=== PATIENT | male | born 1935 | race Caucasian/White ===

== ENCOUNTER 2017-03-28 10:33 | Inpatient (IN) | payer MEDICARE, OTHER ==
[~2017-03-28] VITALS: Ht 170.2 cm; Wt 65.0 kg
[2017-03-28 10:39] VITALS: BP 130/72; PULSE 80; RESP 16; TEMP 97.4; O2SAT 92
--- NOTE | 2017-03-28 11:03 | PD ---
HPI Chief Complaint: Respiratory Symptoms Time Seen by Provider: 10:50 Travel History International Travel<30 days: No Contact w/Intl Traveler<30days: No Traveled to known affect area: No History of Present Illness HPI This 81-year-old male is complaining of having no appetite and feeling weak. He is 81 years old. He has a history of heart disease. He's had multiple stents. He has had surgery for an abdominal aortic aneurysm. He has a history of prostate cancer and history of hypothyroidism. He lives near [place]. He was admitted to a hospital there around December with symptoms of shortness of breath. He was found to have a small amount of fluid and one of his lungs but was released. He came down here and has not been feeling well since he got here. He gets short of breath with minimal exertion. He is complaining of generalized weakness. He stopped smoking at the age of 48. He has history of back troubles he had herniated disc. He has had stents put in his heart PFSH Past Medical History Hx Anticoagulant Therapy: Yes Cardiovascular Problems: Yes (A-FIB) Social History Tobacco Use: No Allergies-Medications (Allergen,Severity, Reaction): Coded Allergies: No Known Allergies (Verified Allergy, Unknown, 03/28/17) Reported Meds & Prescriptions Reported Meds & Active Scripts Active Reported Coumadin (Warfarin) 5 Mg Tab 5 Mg PO DAILY Aspirin 81 Mg Chew 81 Mg CHEW DAILY Ferrous Sulfate 325 Mg (65 Mg Iron) Tablet 325 Mg PO DAILY Atorvastatin (Atorvastatin Calcium) 40 Mg Tab 40 Mg PO HS Citalopram (Citalopram Hydrobromide) 40 Mg Tab 40 Mg PO DAILY Metoprolol Tartrate 50 Mg Tab 50 Mg PO DAILY Levothyroxine (Levothyroxine Sodium) 100 Mcg Tab 100 Mcg PO DAILY Losartan (Losartan Potassium) 25 Mg Tab 25 Mg PO DAILY Review of Systems General / Constitutional: Positive: Weight Loss, No: Fever, Chills Eyes: No: Diploplia, Blurred Vision HENT: No: Headaches, Lightheadedness Cardiovascular: No: Chest Pain or Discomfort, Palpitations Respiratory: Positive: Shortness of Breath Gastrointestinal: Positive: Loss of Appetite Genitourinary: No: Urgency, Frequency Skin: No Rash Neurologic: Positive: Weakness Hematologic/Lymphatic: Positive: Easy Bruising Physical Exam Narrative GENERAL: Well-developed male SKIN: Focused skin assessment warm/dry. HEAD: Atraumatic. Normocephalic. EYES: Pupils equal and round. No scleral icterus. No injection or drainage. ENT: No nasal bleeding or discharge. Mucous membranes pink and moist. NECK: Trachea midline. No JVD. CARDIOVASCULAR: Irregular rate and rhythm. No murmur appreciated. RESPIRATORY: No accessory muscle use. Clear to auscultation. Breath sounds are absent on the right GASTROINTESTINAL: Abdomen soft, non-tender, nondistended. Hepatic and splenic margins not palpable. MUSCULOSKELETAL: No obvious deformities. No clubbing. No cyanosis. No edema. NEUROLOGICAL: Awake and alert. No obvious cranial nerve deficits. Motor grossly within normal limits. Normal speech. PSYCHIATRIC: Appropriate mood and affect; insight and judgment normal. Data Data Last Documented VS Vital Signs Date Time Temp Pulse Resp B/P (MAP) Pulse Ox O2 Delivery O2 Flow Rate FiO2 03/28/17 13:02 90 20 134/73 (93) 98 Room Air 03/28/17 10:39 97.4 Orders Orders Electrocardiogram (03/28/17 11:00) Complete Blood Count With Diff (03/28/17 11:00) Comprehensive Metabolic Panel (03/28/17 11:00) Prothrombin Time / Inr (Pt) (03/28/17 11:00) Act Partial Throm Time (Ptt) (03/28/17 11:00) Chest, Pa & Lat (03/28/17 11:00) Troponin I (03/28/17 11:03) B-Type Natriuretic Peptide (03/28/17 11:03) Ct Thorax/ Chest W Iv Contrast (03/28/17 11:40) Iohexol 350 Inj (Omnipaque 350 Inj) (03/28/17 13:15) Admit Order (Ed Use Only) (03/28/17 13:55) Labs Laboratory Tests Test 03/28/17 11:50 White Blood Count 5.6 TH/MM3 Red Blood Count 3.51 MIL/MM3 Hemoglobin 11.2 GM/DL Hematocrit 35.4 % Mean Corpuscular Volume 100.8 FL Mean Corpuscular Hemoglobin 31.8 PG Mean Corpuscular Hemoglobin Concent 31.5 % Red Cell Distribution Width 17.0 % Platelet Count 268 TH/MM3 Mean Platelet Volume 6.6 FL Neutrophils (%) (Auto) 64.7 % Lymphocytes (%) (Auto) 19.3 % Monocytes (%) (Auto) 11.8 % Eosinophils (%) (Auto) 3.9 % Basophils (%) (Auto) 0.3 % Neutrophils # (Auto) 3.6 TH/MM3 Lymphocytes # (Auto) 1.1 TH/MM3 Monocytes # (Auto) 0.7 TH/MM3 Eosinophils # (Auto) 0.2 TH/MM3 Basophils # (Auto) 0.0 TH/MM3 CBC Comment DIFF FINAL Differential Comment Prothrombin Time 15.3 SEC Prothromb Time International Ratio 1.5 RATIO Activated Partial Thromboplast Time 31.7 SEC Blood Urea Nitrogen 14 MG/DL Creatinine 0.76 MG/DL Random Glucose 82 MG/DL Total Protein 7.1 GM/DL Albumin 2.8 GM/DL Calcium Level 8.2 MG/DL Alkaline Phosphatase 90 U/L Aspartate Amino Transf (AST/SGOT) 18 U/L Alanine Aminotransferase (ALT/SGPT) 12 U/L Total Bilirubin 1.1 MG/DL Sodium Level 137 MEQ/L Potassium Level 4.4 MEQ/L Chloride Level 107 MEQ/L Carbon Dioxide Level 25.2 MEQ/L Anion Gap 5 MEQ/L Estimat Glomerular Filtration Rate 98 ML/MIN Troponin I LESS THAN 0.02 NG/ML B-Type Natriuretic Peptide 581 PG/ML MDM Medical Decision Making Medical Screen Exam Complete: Yes Emergency Medical Condition: Yes Medical Record Reviewed: Yes Differential Diagnosis Differential includes pneumonia, pleural effusion, Narrative Course Chest x-ray shows a large right pleural effusion. The scan has been done and confirms this effusion there may also be a localized pericardial collection Diagnosis Primary Impression: Pleural effusion, right Sammy Coleman MD Mar 28, 2017 11:03
[2017-03-28] MEDS ORDERED: METO50TA PO (11:20)
[2017-03-28] MEDS ORDERED: LEVO100T5 PO (11:20)
[2017-03-28] MEDS ORDERED: COUM5TAB PO (11:20)
[2017-03-28] MEDS ORDERED: LOSA25TA PO (11:20)
[2017-03-28] MEDS ORDERED: ATOR40TA16 PO (11:20)
[2017-03-28] MEDS ORDERED: CITA40TA4 PO (11:20)
[2017-03-28] MEDS ORDERED: ASPI-516 CHEW (11:20)
[2017-03-28] MEDS ORDERED: FERR325T18 PO (11:20)
--- NOTE | 2017-03-28 11:32 | RADRPT ---
EXAM DATE/TIME: 03/28/2017 11:10 [facility] COMPARISON: No previous studies available for comparison. EXTERNAL COMPARISON : [facility]. March 28, 2017 INDICATIONS : Short of breath for one month. Patient was at [facility] this morning and sent to [facility] urgent [facility]. MEDICAL HISTORY : Hypertension. SURGICAL HISTORY : Abdominal aortic aneurysm repair. ENCOUNTER: Initial ACUITY: 1 month PAIN SCORE: 0/10 LOCATION: Bilateral chest FINDINGS: PA and lateral views of the chest were obtained and demonstrate a moderate size right pleural effusio n with streaky opacity at the right lung base. The left lung is clear. The heart size appears mildly enlarged. Mild atherosclerotic changes are present in the aorta. The bony thorax is intact. There are multiple small metallic structures in the posterior central upper abdomen. CONCLUSION: 1. Moderate size right pleural effusion with patchy opacity at the right lung base. 2. Mild cardiomegaly. 3. Multiple small metallic structures in the posterior central upper abdomen which may be related to the patient's prior abdominal aneurysm surgery. Sloan Franklin MD on March 28, 2017 at 11:27 Board Certified Radiologist. This report was verified electronically.
[2017-03-28 12:12] LABS: AUTOMATED NEUTROPHIL # 3.6 TH/MM3 (1.8-7.7); BASOPHIL % 0.3 % (0.0-2.0); EOSINOPHIL # 0.2 TH/MM3 (0-0.4); EOSINOPHIL % 3.9 % (0.0-4.0); HEMATOCRIT 35.4 % (39.0-51.0); HEMOGLOBIN 11.2 GM/DL (13.0-17.0); LYMPH % 19.3 % (9.0-44.0); LYMPHOCYTE # 1.1 TH/MM3 (1.0-4.8); MEAN CELL VOLUME 100.8 FL (80.0-100.0); MEAN CORPUSCULAR HEMOGLOBIN 31.8 PG (27.0-34.0); MEAN CORPUSCULAR HGB CONC 31.5 % (32.0-36.0); MEAN PLATELET VOLUME 6.6 FL (7.0-11.0); MONO % 11.8 % (0.0-8.0); MONOCYTE # 0.7 TH/MM3 (0-0.9); NEUT % 64.7 % (16.0-70.0); PLATELET COUNT 268 TH/MM3 (150-450); RED BLOOD COUNT 3.51 MIL/MM3 (4.50-5.90); WHITE BLOOD COUNT 5.6 TH/MM3 (4.0-11.0)
[2017-03-28 12:22] LABS: CHLORIDE 107 MEQ/L (98-107); SODIUM (NA) 137 MEQ/L (136-145)
[2017-03-28 12:25] LABS: ALBUMIN 2.8 GM/DL (3.4-5.0); BICARBONATE 25.2 MEQ/L (21.0-32.0); BLOOD UREA NITROGEN 14 MG/DL (7-18); CALCIUM 8.2 MG/DL (8.5-10.1); GLUCOSE,RANDOM 82 MG/DL (74-106); INTERNATIONAL NORMALIZED RATIO 1.5 RATIO; PROTHROMBIN TIME - PATIENT 15.3 SEC (9.8-11.6)
[2017-03-28 12:28] LABS: ALT (GPT) 12 U/L (12-78); AST (GOT) 18 U/L (15-37)
[2017-03-28 12:29] LABS: CREATININE 0.76 MG/DL (0.60-1.30); GLOMERULAR FILTRATION RATE 98 ML/MIN (>89)
[2017-03-28 12:30] LABS: TOTAL BILIRUBIN ADULT 1.1 MG/DL (0.2-1.0); TOTAL PROTEIN 7.1 GM/DL (6.4-8.2)
[2017-03-28 12:31] LABS: ALKALINE PHOSPHATASE 90 U/L (45-117)
[2017-03-28 13:02] VITALS: BP 134/73; PULSE 90; RESP 20; O2SAT 98
[2017-03-28] MEDS ORDERED: IOHEXOL 350 MG/ML 10 ML VIAL (for RAD DIAG) IVCONTRAST ONE (13:15)
--- NOTE | 2017-03-28 13:31 | RADRPT ---
EXAM DATE/TIME: 03/28/2017 13:06 [facility] COMPARISON: CHEST PA & LAT, March 28, 2017, 11:10. INDICATIONS : General weakness and loss of appetite. x 5 weeks. Short of breath with exertion. Abnormal chest x-r ay. IV CONTRAST: 60 cc Omnipaque 350 (iohexol) IV RADIATION DOSE: 9.25 CTDIvol (mGy) MEDICAL HISTORY : Cardiovascular disease. Aneurysm, abdominal. Carcinoma, prostate.Hypertension. SURGICAL HISTORY : Abdominal aortic aneurysm repair. Coronary artery stent. ENCOUNTER: Initial ACUITY: 1 month PAIN SCALE: 0/10 LOCATION: Bilateral chest TECHNIQUE: Volumetric scanning of the chest was performed. Using automated exposure control and adjustment of t he mA and/or kV according to patient size, radiation dose was kept as low as reasonably achievable to obtain optimal diagnostic quality images. DICOM format image data is available electronically for review and comparison. Follow-up recommendations for detected pulmonary nodules are based at a minimum on nodule size and pa tient risk factors according to Fleischner Society Guidelines. FINDINGS: LUNGS: There is no pneumothorax. No concerning pulmonary nodule is visualized. There is atelectasis and mil d consolidation in the right lung base portion which may be compressive. Left lung is clear. There is no distinct focal mass. PLEURA: There is a moderate to large right pleural effusion which extends to the lung apex. MEDIASTINUM: The heart and great vessels demonstrate no acute abnormality. There is no mediastinal or hilar lymph adenopathy. There is mild cardiomegaly. There is a low density fluid collection along the anterior he art border which may represent pericardial fluid. This collection measures up to approximately 3.8 x 3 cm. AXILLAE: Within normal limits. No lymphadenopathy. SKELETAL: Within normal limits for patient age. MISCELLANEOUS: The visualized upper abdominal organs demonstrate no acute abnormality. CONCLUSION: 1. Moderate to large right effusion with mild consolidation and atelectasis at the right lung base wh ich may be partially compressible. 2. Local rounded fluid collection located into the heart which could represent a localized pericardia l collection. Sloan Franklin MD on March 28, 2017 at 13:26 Board Certified Radiologist. This report was verified electronically.
[2017-03-28] MEDS ORDERED: SODIUM CHLORIDE 0.9% FLUSH 10 ML FLUSH IV FLUSH PRN (14:30)
--- NOTE | 2017-03-28 15:21 | HHI.HP ---
[facility]Staff Ad[facility] Diagnosis RIGHT PLEURAL EFFUSION Diagnoses: Chief Complaint: Shortness of breath Travel History International Travel<30 Days: No Contact w/Intl Traveler <30 Da: No Traveled to Known Affected Are: No History of Present Illness This patient is an 81-year-old gentleman with a history of atrial fibrillation and HCM who comes to the emergency room complaining of increased fatigue and poor oral intake over the last several days. He has admitted he's lost about 10 pounds unintentionally due to not eating and sleeping a lot. Apparently in December he had some sort of pneumonia which was treated in the hospital. Subsequently he had evaluation for increased shortness of breath and was found have a small pleural effusion. Since that time he's been discharged. He did have a complete cardiac evaluation per his report which included a heart catheterization and echocardiogram which she reports as "normal". He follows up with his medical team up in [place] but is visiting down in [place] for the winter. He has not had any new medications. He reports increased dyspnea and work of breathing and shortness of breath. In the emergency room was evaluated and found to have a moderate to large right sided pleural effusion. He says he may have had one before in the hospital [place] but it was very small and the doctors didn't mention it but said to just keep an eye out. At this time he presents without fever or chills. He has not had any constipation or diarrhea. There is no chest pain or pleuritic pain. He is however very short of breath with walking sort distances and has become mildly hypoxemic in the emergency room. For these reasons the patient is admitted to the hospital Review of Systems Constitutional: COMPLAINS OF: Fatigue, Weight loss (at least 10 pounds unintentionally over the last several weeks), Change in appetite, DENIES: Diaphoretic episodes, Fever, Weight gain, Chills, Dizziness, Night Sweats Endocrine: DENIES: Heat/cold intolerance, Polydipsia, Polyuria, Polyphagia Eyes: DENIES: Blurred vision, Diplopia, Eye inflammation, Eye pain, Vision loss , Photosensitivity, Double Vision Ears, nose, mouth, throat: DENIES: Tinnitus, Hearing loss, Vertigo, Nasal discharge, Oral lesions, Throat pain, Hoarseness, Ear Pain, Running Nose, Epistaxis, Sinus Pain, Toothache, Odynophagia Respiratory: DENIES: Apneas, Cough, Snoring, Wheezing, Hemoptysis, Sputum production, Shortness of breath Cardiovascular: COMPLAINS OF: Dyspnea on Exertion, DENIES: Chest pain, Palpitations, Syncope, PND, Lower Extremity Edema, Orthopnea, Claudication Gastrointestinal: DENIES: Abdominal pain, Black stools, Bloody stools, Constipation, Diarrhea, Nausea, Vomiting, Difficulty Swallowing, Anorexia Musculoskeletal: DENIES: Joint pain, Muscle aches, Stiffness, Joint Swelling, Back pain, Neck pain Integumentary: DENIES: Abnormal pigmentation, Nail changes, Pruritus, Rash Hematologic/lymphatic: DENIES: Bruising, Lymphadenopathy Immunologic/allergic: DENIES: Eczema, Urticaria Neurologic: DENIES: Abnormal gait, Headache, Localized weakness, Paresthesias, Seizures, Speech Problems, Tremor, Poor Balance Psychiatric: COMPLAINS OF: Anxiety (stable on SSRI), DENIES: Confusion, Mood changes, Depression, Hallucinations, Agitation, Suicidal Ideation, Homicidal Ideation, Delusions Except as stated in HPI: all other systems reviewed are Neg Past Family Social History Past Medical History Relation Hypertrophic cardiomyopathy Triple a status post surgical repair Depression Chronic Coumadin therapy for A. fib Hyperlipidemia Hypertension Prostate cancer status post seeding Past Surgical History AAA repair, appendectomy, ankle surgery Right second digit partial amputation Reported Medications Reviewed in the EMR Allergies: Coded Allergies: No Known Allergies (Verified Allergy, Unknown, 03/28/17) Active Ordered Medications Reviewed in the EMR Family History Mother at 97 but had abdominal aortic aneurysm, father from brain cancer Social History Quit smoking over 30 years ago, no tobacco, visiting from [place] Physical Exam Vital Signs Vital Signs Date Time Temp Pulse Resp B/P (MAP) Pulse Ox O2 Delivery O2 Flow Rate FiO2 03/28/17 13:02 90 20 134/73 (93) 98 Room Air 03/28/17 12:00 20 03/28/17 10:39 97.4 80 16 130/72 (91) 92 Physical Exam GENERAL: This is a well-nourished, well-developed patient, in no apparent distress. SKIN: No rashes, ecchymoses or lesions. Cool and dry. HEAD: Atraumatic. Normocephalic. No temporal or scalp tenderness. EYES: Pupils equal round and reactive. Extraocular motions intact. No scleral icterus. No injection or drainage. ENT: Nose without bleeding, purulent drainage or septal hematoma. Throat without erythema, tonsillar hypertrophy or exudate. Uvula midline. Airway patent. NECK: Trachea midline. No JVD or lymphadenopathy. Supple, nontender, no meningeal signs. CARDIOVASCULAR: Rate controlled atrial fibrillation without murmurs, gallops, or rubs. RESPIRATORY: Decreased breath sounds right lower lung alexander, no wheezes GASTROINTESTINAL: Abdomen soft, non-tender, nondistended. No hepato-splenomegaly , or palpable masses. No guarding. MUSCULOSKELETAL: Right second digit partially amputated, Extremities without clubbing, cyanosis, or edema. No joint tenderness, effusion, or edema noted. No calf tenderness. Negative Homans sign bilaterally. NEUROLOGICAL: Awake and alert. Cranial nerves II through XII intact. Motor and sensory grossly within normal limits. Five out of 5 muscle strength in all muscle groups. Normal speech. Laboratory Laboratory Tests Test 03/28/17 11:50 White Blood Count 5.6 Red Blood Count 3.51 Hemoglobin 11.2 Hematocrit 35.4 Mean Corpuscular Volume 100.8 Mean Corpuscular Hemoglobin 31.8 Mean Corpuscular Hemoglobin Concent 31.5 Red Cell Distribution Width 17.0 Platelet Count 268 Mean Platelet Volume 6.6 Neutrophils (%) (Auto) 64.7 Lymphocytes (%) (Auto) 19.3 Monocytes (%) (Auto) 11.8 Eosinophils (%) (Auto) 3.9 Basophils (%) (Auto) 0.3 Neutrophils # (Auto) 3.6 Lymphocytes # (Auto) 1.1 Monocytes # (Auto) 0.7 Eosinophils # (Auto) 0.2 Basophils # (Auto) 0.0 CBC Comment DIFF FINAL Differential Comment Prothrombin Time 15.3 Prothromb Time International Ratio 1.5 Activated Partial Thromboplast Time 31.7 Blood Urea Nitrogen 14 Creatinine 0.76 Random Glucose 82 Total Protein 7.1 Albumin 2.8 Calcium Level 8.2 Alkaline Phosphatase 90 Aspartate Amino Transf (AST/SGOT) 18 Alanine Aminotransferase (ALT/SGPT) 12 Total Bilirubin 1.1 Sodium Level 137 Potassium Level 4.4 Chloride Level 107 Carbon Dioxide Level 25.2 Anion Gap 5 Estimat Glomerular Filtration Rate 98 Troponin I LESS THAN 0.02 B-Type Natriuretic Peptide 581 Result Diagram: 03/28/17 1150 03/28/17 1150 Imaging Last Impressions Chest CT 03/28/17 1140 Signed Impressions: Service Date/Time: March 13:06 - CONCLUSION: 1. Moderate to large right effusion with mild consolidation and atelectasis at the right lung base which may be partially compressible. 2. Local rounded fluid collection located into the heart which could represent a localized pericardial collection. Sloan Franklin MD Chest X-Ray 03/28/17 1100 Signed Impressions: Service Date/Time: March 11:10 - CONCLUSION: 1. Moderate size right pleural effusion with patchy opacity at the right lung base. 2. Mild cardiomegaly. 3. Multiple small metallic structures in the posterior central upper abdomen which may be related to the patient's prior abdominal aneurysm surgery. Sloan Franklin MD Caprini VTE Risk Assessment Caprini VTE Risk Assessment: Mod/High Risk (score >= 2) Caprini Risk Assessment Model Point Value = 1 Point Value = 2 Point Value = 3 Point Value = 5 Age 41-60 Minor surgery BMI > 25 kg/m2 Swollen legs Varicose veins or History of unexplained or recurrent spontaneous Oral contraceptives or hormone replacement Sepsis (< 1 month) Serious lung disease, including pneumonia (< 1 month) Abnormal pulmonary function Acute myocardial infarction Congestive heart failure (< 1 month) History of inflammatory bowel disease Medical patient at bed rest Age 61-74 Arthroscopic surgery Major open surgery (> 45 min) Laparoscopic surgery (> 45 min) Malignancy Confined to bed (> 72 hours) Immobilizing plaster cast Central venous access Age >= 75 History of VTE Family history of VTE Factor V Leiden Prothrombin [id number] Lupus anticoagulant Anticardiolipin antibodies Elevated serum homocysteine Heparin-induced thrombocytopenia Other congenital or acquired thrombophilia Stroke (< 1 month) Elective arthroplasty Hip, pelvis, or leg fracture Acute spinal cord injury (< 1 month) Prophylaxis Regimen Total Risk Factor Score Risk Level Prophylaxis Regimen 0-1 Low Early ambulation 2 Moderate Order ONE of the following: *Sequential Compression Device (SCD) *Heparin 5000 units SQ BID 3-4 Higher Order ONE of the following medications: *Heparin 5000 units SQ TID *Enoxaparin/Lovenox 40 mg SQ daily (WT < 150 kg, CrCl > 30 mL/min) *Enoxaparin/Lovenox 30 mg SQ daily (WT < 150 kg, CrCl > 10-29 mL/min) *Enoxaparin/Lovenox 30 mg SQ BID (WT < 150 kg, CrCl > 30 mL/min) AND/OR *Sequential Compression Device (SCD) 5 or more Highest Order ONE of the following medications: *Heparin 5000 units SQ TID (Preferred with Epidurals) *Enoxaparin/Lovenox 40 mg SQ daily (WT < 150 kg, CrCl > 30 mL/min) *Enoxaparin/Lovenox 30 mg SQ daily (WT < 150 kg, CrCl > 10-29 mL/min) *Enoxaparin/Lovenox 30 mg SQ BID (WT < 150 kg, CrCl > 30 mL/min) AND *Sequential Compression Device (SCD) Assessment and Plan Problem List: (1) Pleural effusion, right ICD Code: J90 - Pleural effusion, not elsewhere classified Status: Acute Plan: Etiology unclear, patient will need therapeutic and diagnostic thoracentesis which we will arrange INR 1.5 today, continue to hold Coumadin Ultrasound for for thoracentesis Follow-up echocardiogram, obtain old records (2) Afib ICD Code: I48.91 - Unspecified atrial fibrillation Plan: Rate currently controlled, we'll continue patient's home medications, metoprolol, follow on telemetry Coumadin has been held for possible procedures (3) HTN (hypertension) ICD Code: I10 - Essential (primary) hypertension Plan: Currently on losartan and metoprolol, controlled (4) HOCM (hypertrophic obstructive cardiomyopathy) ICD Code: I42.1 - Obstructive hypertrophic cardiomyopathy Plan: Avoid over diuresis continue cardiac medicines Assessment and Plan Continue home medicines for thyroid, anxiety , cholesterol and iron Code Status Full code Discussed Condition With Patient, JOSEPH Sal Physician Certification 2 Midnight Certification Type: Admission for Inpatient Services Order for Inpatient Services The services are ordered in accordance with Medicare regulations or non- Medicare payer requirements, as applicable. In the case of services not specified as inpatient-only, they are appropriately provided as inpatient services in accordance with the 2-midnight benchmark. Estimated LOS (days): 3 3 days is the estimated time the patient will need to remain in the hospital, assuming treatment plan goals are met and no additional complications. Post-Hospital Plan: Bertha Yan MD Mar 28, 2017 15:21
[2017-03-28 15:30] VITALS: BP 135/81; PULSE 87; RESP 20; TEMP 97.9; O2SAT 92
[2017-03-28] MEDS ORDERED: FUROSEMIDE 40 MG/4 ML VIAL IV PUSH ONE (16:00)
[2017-03-28] MEDS ORDERED: RESP: ALBUTEROL 2.5 MG/IPRATROPIUM 0.5 MG NEB (PRN) NEB (16:00)
[2017-03-28] MEDS: LEVOFLOXACIN 500 MG PREMIX INJ 100 ML IV SCH (16:26)
[2017-03-28] MEDS ORDERED: FUROSEMIDE 40 MG/4 ML VIAL IV PUSH SCH (18:00)
[2017-03-28 20:00] VITALS: BP 101/82; PULSE 107; RESP 20; TEMP 98.1; O2SAT 95
[2017-03-28 21:00] VITALS: O2SAT 93
[2017-03-28] MEDS: SODIUM CHLORIDE 0.9% FLUSH 10 ML FLUSH IV FLUSH SCH (21:54)
[2017-03-29] VITALS (7 sets, daily range): BP systolic 103–142; BP diastolic 65–108; PULSE 65–98; RESP 16–22; TEMP 96.2–97.6; O2SAT 94–98
[2017-03-29 06:04] LABS: AUTOMATED NEUTROPHIL # 3.7 TH/MM3 (1.8-7.7); BASOPHIL % 0.4 % (0.0-2.0); EOSINOPHIL # 0.2 TH/MM3 (0-0.4); EOSINOPHIL % 3.9 % (0.0-4.0); HEMATOCRIT 36.6 % (39.0-51.0); HEMOGLOBIN 11.8 GM/DL (13.0-17.0); LYMPHOCYTE # 1.2 TH/MM3 (1.0-4.8); MEAN CELL VOLUME 98.1 FL (80.0-100.0); MEAN CORPUSCULAR HEMOGLOBIN 31.6 PG (27.0-34.0); MEAN CORPUSCULAR HGB CONC 32.3 % (32.0-36.0); MONO % 12.9 % (0.0-8.0); MONOCYTE # 0.8 TH/MM3 (0-0.9); NEUT % 61.8 % (16.0-70.0); PLATELET COUNT 280 TH/MM3 (150-450); RED BLOOD COUNT 3.73 MIL/MM3 (4.50-5.90); RED CELL DISTRIBUTION WIDTH 15.8 % (11.6-17.2); WHITE BLOOD COUNT 5.9 TH/MM3 (4.0-11.0)
[2017-03-29 06:18] LABS: CALCIUM 8.7 MG/DL (8.5-10.1)
[2017-03-29 06:19] LABS: BICARBONATE 27.1 MEQ/L (21.0-32.0)
[2017-03-29 06:22] LABS: CREATININE 0.95 MG/DL (0.60-1.30)
--- NOTE | 2017-03-29 06:55 | MB ---
cc: ROBERTA SEALS DATE OF CONSULTATION 03/28/2017 REASON FOR CONSULTATION Respiratory insufficiency with right pleural effusion. HISTORY OF PRESENT ILLNESS This is an 81-year old white male with a history of chronic atrial fibrillation on anticoagulation who was brought in for progressive weakness, dizziness, shortness of breath and tightness in his chest. The patient apparently has had a history for pneumonia in the past and he was orthopneic over the past few days and he has been Coumadin, but his INR was subtherapeutic. The patient is visiting from [place], [place] and is now admitted due to increased dyspnea and a right pleural effusion. The patient also admits to have had some weight loss over the past few months, but denies any GI symptoms or loose stools or constipation. PAST HISTORY Has included a history for: 1. Atrial fibrillation and ASHD 2. Cardiomyopathy 3. Prior history of abdominal aortic aneurysm repair. 4. History of hypertension and hyperlipidemia. 5. Prior history of prostate cancer with radiation therapy. 6. A history for appendectomy and ankle surgery as well as partial amputation of the right second digit. ALLERGIES None listed. MEDICATIONS The med list was reviewed from the chart. HABITS The patient smoked one-pack per day for 20 years and then quit. No significant alcohol use. REVIEW OF SYSTEMS The patient has had some weight loss. He has dizziness. He has chest tightness, wheezing, shortness of breath, orthopnea. He has urinary frequency. Denies leg or calf muscle pains. He has some joint pains in his extremities. PHYSICAL EXAMINATION This is a thinly built elderly man who is pale and mildly dyspneic. There is no clubbing and no peripheral edema. VITAL SIGNS: His blood pressure is 130/70, pulse 88, respirations 20, temperature 97.5. HEENT: Head normocephalic. Pupils are reactive and equal. Tongue is moist. Throat is clear. Nasal mucosa injected. He has no inflammation. NECK: Supple without venous distension. No bruits or thyroid enlargement. CHEST: Equal movements. Dullness to percussion over the right mid and lower chest with decreased breath sounds over the right base. Occasional wheezes bilaterally. HEART: The heart sounds irregularly irregular with no murmur. No S3. ABDOMEN: Soft and nontender. No organomegaly. Bowel sounds are active. EXTREMITIES: Decreased peripheral pulses. Reflexes 1+ with no gross motor deficits. NEUROLOGIC: Cranial nerves grossly intact. RECTAL: Exam is deferred. SKIN: No lesions are noted. IMPRESSION 1. Right pleural effusion, etiology undetermined. 2. Right basilar atelectasis and possible pneumonia 3. He has atrial fibrillation and ASHD. 4. Hypertension 5. Hypertrophic cardiomyopathy. PLAN The patient has been advised that a thoracentesis will be planned to evaluate the effusion for therapeutic purposes. The risks of the procedure including pneumothorax, bleeding, respiratory failure, etc. were discussed. We will hold the Coumadin at this time and if his pro-time is adequate, go ahead with a thoracentesis in the a.m. And ultrasound examination of the chest will be obtained as well and we will continue with diuretic therapy daily, nebulized DuoNeb solution added q.i.d. and Levaquin continued at 500 mg IV daily. Thank you Dr. Navarro for this consultation. MD TICO Rubin/SHAWNA /8:38 PM /6:29 AM
--- NOTE | 2017-03-29 09:40 | RADRPT ---
EXAM DATE/TIME: 03/29/2017 09:03 [facility] COMPARISON: No previous studies available for comparison. INDICATIONS : Pleural effusion. MEDICAL HISTORY : Hypercholesterolemia. Aneurysm, abdominal. Carcinoma, prostate. Thyroid disease. Afib. HTN. Anxiety. Pleural effusion. SURGICAL HISTORY : Coronary artery stent. Abdominal aortic aneurysm repair. Hernia repair. ENCOUNTER: Initial ACUITY: 1 day PAIN SCORE: 1/10 LOCATION: Right chest MEASUREMENTS: SKIN TO PARIETAL PLEURA: 1.7 cm SKIN TO MAX SAFE DEPTH: 6.0 cm ESTIMATED FLUID VOLUME: 1814 cc FLUID COMPOSITION: simple FINDINGS: Pleural effusion as above. A nolan was placed on the skin surface superficial to the pleural fluid col lection. CONCLUSION: Large right effusion. Trevor Tapia Jr., MD on March 29, 2017 at 9:37 Board Certified Radiologist. This report was verified electronically.
[2017-03-29] MEDS: LOSARTAN 25 MG TAB PO SCH (11:28)
[2017-03-29] MEDS: METOPROLOL TARTRATE 50 MG TAB PO SCH (11:28)
[2017-03-29] MEDS: FERROUS SULFATE 325 MG (65 MG ELEMENTAL IRON) TAB PO SCH (11:28)
[2017-03-29] MEDS: LEVOTHYROXINE SODIUM 100 MCG TAB PO SCH (11:29)
[2017-03-29] MEDS: CITALOPRAM HYDROBROMIDE 40 MG TAB PO SCH (11:30)
[2017-03-29] MEDS ORDERED: ZOLPIDEM TARTRATE 10 MG TAB PO PRN (11:45)
--- NOTE | 2017-03-29 11:48 | HHI.PR ---
Subjective Remarks Patient seen in follow up for Pleural effusion and symptoms of SOB Pulm consult appreciated No new events overnight Objective Vitals Vital Signs Date Time Temp Pulse Resp B/P (MAP) Pulse Ox O2 Delivery O2 Flow Rate FiO2 03/29/17 08:00 97.4 90 16 108/66 (80) 94 03/29/17 04:00 97.1 98 20 142/108 (119) 98 03/29/17 00:00 97.4 98 20 126/67 (86) 94 03/28/17 21:00 93 21 03/28/17 20:00 98.1 107 20 101/82 (88) 95 03/28/17 15:30 97.9 87 20 135/81 (99) 92 03/28/17 13:02 90 20 134/73 (93) 98 Room Air 03/28/17 12:00 20 I/O 03/28/17 03/28/17 03/28/17 03/29/17 03/29/17 03/29/17 07:00 15:00 23:00 07:00 15:00 23:00 Intake Total 220 ml Output Total 2 ml Balance 218 ml Intake Oral 220 ml Output Urine Total 2 ml # Bowel Movements 0 Result Diagram: 03/29/17 0527 03/29/17 0527 Imaging Last Impressions Chest Ultrasound 03/29/17 0000 Signed Impressions: Service Date/Time: Wednesday, March 29, 2017 09:03 - CONCLUSION: Large right effusion. Trevor Tapia Jr., MD Chest CT 03/28/17 1140 Signed Impressions: Service Date/Time: March 13:06 - CONCLUSION: 1. Moderate to large right effusion with mild consolidation and atelectasis at the right lung base which may be partially compressible. 2. Local rounded fluid collection located into the heart which could represent a localized pericardial collection. Sloan Franklin MD Chest X-Ray 03/28/17 1100 Signed Impressions: Service Date/Time: March 11:10 - CONCLUSION: 1. Moderate size right pleural effusion with patchy opacity at the right lung base. 2. Mild cardiomegaly. 3. Multiple small metallic structures in the posterior central upper abdomen which may be related to the patient's prior abdominal aneurysm surgery. Sloan Franklin MD Objective Remarks GENERAL: This is a well-nourished, well-developed patient, in no apparent distress. CARDIOVASCULAR: Regular rate and rhythm without murmurs, gallops, or rubs. RESPIRATORY:right side decreased at the base, left Clear to auscultation. Breath sounds equal bilaterally. No wheezes, rales, or rhonchi. GASTROINTESTINAL: Abdomen soft, non-tender, nondistended. Normal active bowel sounds MUSCULOSKELETAL: Extremities without clubbing, cyanosis, or edema. NEURO: Alert & Oriented x4 to person, place, time, situation. Moves all ext x4 A/P Problem List: (1) Pleural effusion, right ICD Code: J90 - Pleural effusion, not elsewhere classified Status: Acute Plan: Etiology unclear, patient will need therapeutic and diagnostic thoracentesis which we will arrange INR 1.5 today, continue to hold Coumadin Pulm for thoracentesis Follow-up echocardiogram, obtain old records (2) Afib ICD Code: I48.91 - Unspecified atrial fibrillation Plan: Rate currently controlled, we'll continue patient's home medications, metoprolol, follow on telemetry Coumadin has been held for thoracentesis (3) HTN (hypertension) ICD Code: I10 - Essential (primary) hypertension Plan: Currently on losartan and metoprolol, controlled (4) HOCM (hypertrophic obstructive cardiomyopathy) ICD Code: I42.1 - Obstructive hypertrophic cardiomyopathy Plan: Avoid over diuresis continue cardiac medicines Discharge Planning home in am if stable Bertha Navarro MD Mar 29, 2017 11:48
--- NOTE | 2017-03-29 12:15 | ECHRPT ---
Indication: HX HCM, AT FIB CONCLUSIONS Normal left ventricular size. The left ventricular systolic function is hyperdynamic with an estimated ejection fraction in the ra nge of 65- 70%. Nonobstructive prominent basal hypertrophy is present consistent with sigmoid septum. The basal septum is measured at 2.7 cm. No significant left ventricular outflow tract gradient is demonstrated. The left atrial size is moderately dilated. The right atrial size is moderately dilated. Mild mitral valve regurgitation. Mild mitral annular calcification. Posterior mitral valve leaflet prolapse. Moderate aortic valve sclerosis is present. Zbgs-[id number]-[id number] aortic valve regurgitation. There is mild tricuspid valve regurgitation. The estimated pulmonary arterial pressure is 40 mmHg. BP: 142 / 108 HR: 98 Rhythm: Atrial fibrillation MEASUREMENTS (Male / Female) Normal Values Technical Quality:Fair 2D ECHO LVOT Diameter 2.4 cm Aortic Root Diameter 3.6 cm M-MODE AV Cusp Separation MM 2.2 cm DOPPLER AV Peak Velocity 204.0 cm/s AV Peak Gradient 16.6 mmHg AV Mean Gradient 9.3 mmHg AV Velocity Time Integral 31.6 cm LVOT Peak Velocity 160.0 cm/s LVOT Peak Gradient 10.2 mmHg LVOT Velocity Time Integral 25.4 cm AV Area Cont Eq vti 3.6 cm AV Area Cont Eq pk 3.5 cm TR Peak Velocity 318.0 cm/s TR Peak Gradient 40.4 mmHg PV Peak Velocity 57.1 cm/s PV Peak Gradient 1.3 mmHg FINDINGS LEFT VENTRICLE Normal left ventricular size. The left ventricular systolic function is hyperdynamic with an estimated ejection fraction in the ra nge of 65- 70%. Nonobstructive prominent basal hypertrophy is present consistent with sigmoid septum. The basal septum is measured at 2.7 cm. No significant left ventricular outflow tract gradient is demonstrated. RIGHT VENTRICLE Normal right ventricular size and systolic function. LEFT ATRIUM The left atrial size is moderately dilated. RIGHT ATRIUM The right atrial size is moderately dilated. ATRIAL SEPTUM The interatrial septum not well visualized. AORTA The aortic root and proximal ascending aorta are normal in size on limited imaging. MITRAL VALVE Mild mitral valve regurgitation. Mild mitral annular calcification. Posterior mitral valve leaflet prolapse. AORTIC VALVE Moderate aortic valve sclerosis is present. Yfjd-by-[id number] aortic valve regurgitation. TRICUSPID VALVE There is mild tricuspid valve regurgitation. The estimated pulmonary arterial pressure is 40 mmHg. PULMONARY VALVE The pulmonary valve is not well visualized. VESSELS The inferior vena cava was not well visualized. PERICARDIUM A right sided pleural effusion is present. Von Gabriel MD (Electronically Signed) Final Date:29 March 2017 12:14
[2017-03-29] MEDS: LEVOFLOXACIN 500 MG PREMIX INJ 100 ML IV SCH (16:38)
[2017-03-29] MEDS: SODIUM CHLORIDE 0.9% FLUSH 10 ML FLUSH IV FLUSH SCH ×2 (16:38→21:11)
[2017-03-29] MEDS ORDERED: HEPARIN SODIUM - IV 10,000 UNITS/10 ML VIAL ONE (18:30)
--- NOTE | 2017-03-29 19:55 | EKG ---
Date Performed: 03/28/2017 Time Performed: 11:33:46 PTAGE: 81 years EKG: ATRIAL FIBRILLATION WITH CONTROLLED VENTRICULAR RATE PROBABLE INFERIOR MYOCARDIAL INFARCTIO N NONDIAGNOSTIC Q WAVES IN THE INFERIOR LEADS POSSIBLE LVH ABNORMAL ECG NO PREVIOUS TRACING DOCTOR: Sathya Mendez Interpretating Date/Time 03/29/2017 19:54:59
[2017-03-29 20:08] LABS: PLEURAL FLUID HISTIOCYTES 5 %; PLEURAL FLUID LYMPHS 85 %; PLEURAL FLUID MESOTHELIAL 4 %; PLEURAL FLUID POLYS (SEGS) 6 %; PLEURAL FLUID RBC 1402 /MM3 (0-0); PLEURAL FLUID WBC 364 /MM3 (0-10)
[2017-03-29 20:24] LABS: TOTAL PROTEIN,PLEURAL FLUID 4.3 GM/DL
--- NOTE | 2017-03-29 20:56 | RADRPT ---
EXAM DATE/TIME: 03/29/2017 19:31 [facility] COMPARISON: No previous studies available for comparison. INDICATIONS : Status post right thoracentesis. MEDICAL HISTORY : Hypercholesterolemia. Aneurysm, abdominal. Carcinoma, prostate. Thyroid disease, Afib. HTN. Anxiety. Pleural effusion SURGICAL HISTORY : Coronary artery stent. Abdominal aortic aneurysm repair. Hernia repair, Thoracentesis ENCOUNTER: Subsequent ACUITY: 2 days PAIN SCORE: 0/10 LOCATION: Right chest FINDINGS: Discoid atelectasis is noted within the right mid lung field. Tiny right pleural effusion is noted. T here is no pneumothorax. The heart is enlarged. The left lung is clear. CONCLUSION: 1. No pneumothorax noted. 2. Discoid atelectasis within the right mid lung field. 3. Tiny right pleural effusion. 4. Cardiomegaly. Renard Geiger MD on March 29, 2017 at 20:52 Board Certified Radiologist. This report was verified electronically.
[2017-03-29] MEDS ORDERED: ATORVASTATIN 40 MG TAB PO SCH (21:00)
[2017-03-30] VITALS: BP 123/63; PULSE 86; RESP 20; TEMP 97.8; O2SAT 92
[2017-03-30] MEDS: LEVOTHYROXINE SODIUM 100 MCG TAB PO SCH (05:07)
[2017-03-30] MEDS: CITALOPRAM HYDROBROMIDE 40 MG TAB PO SCH (09:00)
[2017-03-30] MEDS ORDERED: LEVO500T8 PO (11:07)
--- NOTE | 2017-03-30 11:09 | HHI.DS ---
Discharge Summary Admission Date Mar 28, 2017 at 13:56 Discharge Date: Mar 30, 2017 Admitting Diagnosis RIGHT PLEURAL EFFUSION (1) Pleural effusion, right ICD Code: J90 - Pleural effusion, not elsewhere classified Status: Acute (2) Afib ICD Code: I48.91 - Unspecified atrial fibrillation (3) HTN (hypertension) ICD Code: I10 - Essential (primary) hypertension (4) HOCM (hypertrophic obstructive cardiomyopathy) ICD Code: I42.1 - Obstructive hypertrophic cardiomyopathy Procedures Thoracentesis, Dr. Huang Brief History - From Admission This patient is an 81-year-old gentleman with a history of atrial fibrillation and HCM who comes to the emergency room complaining of increased fatigue and poor oral intake over the last several days. He has admitted he's lost about 10 pounds unintentionally due to not eating and sleeping a lot. Apparently in December he had some sort of pneumonia which was treated in the hospital. Subsequently he had evaluation for increased shortness of breath and was found have a small pleural effusion. Since that time he's been discharged. He did have a complete cardiac evaluation per his report which included a heart catheterization and echocardiogram which she reports as "normal". He follows up with his medical team up in [place] but is visiting down in [place] for the winter. He has not had any new medications. He reports increased dyspnea and work of breathing and shortness of breath. In the emergency room was evaluated and found to have a moderate to large right sided pleural effusion. He says he may have had one before in the hospital [place] but it was very small and the doctors didn't mention it but said to just keep an eye out. At this time he presents without fever or chills. He has not had any constipation or diarrhea. There is no chest pain or pleuritic pain. He is however very short of breath with walking sort distances and has become mildly hypoxemic in the emergency room. For these reasons the patient is admitted to the hospital CBC/BMP: 03/29/17 0527 03/29/17 0527 Significant Findings Laboratory Tests Test 03/28/17 11:50 03/29/17 05:27 03/29/17 18:20 Red Blood Count 3.51 MIL/MM3 (4.50-5.90) 3.73 MIL/MM3 (4.50-5.90) Hemoglobin 11.2 GM/DL (13.0-17.0) 11.8 GM/DL (13.0-17.0) Hematocrit 35.4 % (39.0-51.0) 36.6 % (39.0-51.0) Mean Corpuscular Volume 100.8 FL (80.0-100.0) Mean Corpuscular Hemoglobin Concent 31.5 % (32.0-36.0) Mean Platelet Volume 6.6 FL (7.0-11.0) Monocytes (%) (Auto) 11.8 % (0.0-8.0) 12.9 % (0.0-8.0) Prothrombin Time 15.3 SEC (9.8-11.6) Activated Partial Thromboplast Time 31.7 SEC (24.3-30.1) Albumin 2.8 GM/DL (3.4-5.0) Calcium Level 8.2 MG/DL (8.5-10.1) Total Bilirubin 1.1 MG/DL (0.2-1.0) Troponin I LESS THAN 0.02 NG/ML B-Type Natriuretic Peptide 581 PG/ML (0-100) Estimat Glomerular Filtration Rate 76 ML/MIN (>89) Pleural Fluid WBC 364 /MM3 (0-10) Pleural Fluid RBC 1402 /MM3 (0-0) Imaging Last Impressions Chest X-Ray 03/29/17 0000 Signed Impressions: Service Date/Time: Wednesday, March 29, 2017 19:31 - CONCLUSION: 1. No pneumothorax noted. 2. Discoid atelectasis within the right mid lung field. 3. Tiny right pleural effusion. 4. Cardiomegaly. Renard Geiger MD Chest Ultrasound 03/29/17 0000 Signed Impressions: Service Date/Time: Wednesday, March 29, 2017 09:03 - CONCLUSION: Large right effusion. Trevor Tapia Jr., MD Chest CT 03/28/17 1140 Signed Impressions: Service Date/Time: March 13:06 - CONCLUSION: 1. Moderate to large right effusion with mild consolidation and atelectasis at the right lung base which may be partially compressible. 2. Local rounded fluid collection located into the heart which could represent a localized pericardial collection. Sloan Franklin MD PE at Discharge GENERAL: This is a well-nourished, well-developed patient, in no apparent distress. CARDIOVASCULAR: Regular rate and rhythm without murmurs, gallops, or rubs. RESPIRATORY:right side decreased at the base, left Clear to auscultation. Breath sounds equal bilaterally. No wheezes, rales, or rhonchi. GASTROINTESTINAL: Abdomen soft, non-tender, nondistended. Normal active bowel sounds MUSCULOSKELETAL: Extremities without clubbing, cyanosis, or edema. NEURO: Alert & Oriented x4 to person, place, time, situation. Moves all ext x4 Pt update on day of discharge GENERAL: This is a well-nourished, well-developed patient, in no apparent distress. CARDIOVASCULAR: Regular rate and rhythm without murmurs, gallops, or rubs. RESPIRATORY: Clear to auscultation. Breath sounds equal bilaterally. No wheezes , rales, or rhonchi. GASTROINTESTINAL: Abdomen soft, non-tender, nondistended. Normal active bowel sounds MUSCULOSKELETAL: Extremities without clubbing, cyanosis, or edema. NEURO: Alert & Oriented x4 to person, place, time, situation. Moves all ext x4 Hospital Course This patient's 81-year-old gentleman who did present with shortness of breath likely related to a right sided pleural effusion. Patient did have a thoracentesis done by the armed security officer. He felt much better. Patient was discharged home to follow-up as an outpatient. His atrial fibrillation and other medical problems remained stable. Patient does have hypertrophic cardiomyopathy which is stable. Echocardiogram done here compared to previous echocardiogram obtained from [facility] in [place]. Pt Condition on Discharge: Good Discharge Disposition: Discharge Home Discharge Time: <= 30 minutes Discharge Instructions DIET: Follow Instructions for: As Tolerated, No Restrictions Activities you can perform: Regular-No Restrictions Follow up Referrals: Pulmonology - 04/03/17 with Mary Mckinney MD New Medications: Levofloxacin (Levofloxacin) 500 Mg Tablet 500 MG PO DAILY for Infection, #5 TAB 0 Refills Continued Medications: Aspirin (Aspirin) 81 Mg Chew 81 MG CHEW DAILY, TAB 0 Refills Atorvastatin (Atorvastatin) 40 Mg Tab 40 MG PO HS for Cholesterol Management, #30 TAB 0 Refills Citalopram (Citalopram) 40 Mg Tab 40 MG PO DAILY for Control Depression, #30 TAB 0 Refills Ferrous Sulfate (Ferrous Sulfate) 325 Mg (65 Mg Iron) Tablet 325 MG PO DAILY for Nutritional Supplement, #30 TAB 0 Refills Levothyroxine (Levothyroxine) 100 Mcg Tab 100 MCG PO DAILY for Thyroid, #30 TAB 0 Refills Losartan (Losartan) 25 Mg Tab 25 MG PO DAILY for Blood Pressure Management, #30 TAB 0 Refills Metoprolol Tartrate (Metoprolol Tartrate) 50 Mg Tab 50 MG PO DAILY, #30 TAB 0 Refills Warfarin (Coumadin) 5 Mg Tab 5 MG PO DAILY for Blood Clot Prevention, #30 TAB 0 Refills Bertha Navarro MD Mar 30, 2017 11:09
--- NOTE | 2017-03-30 11:09 | HHI.DCPOC ---
Discharge Care Plan Diagnosis: (1) HTN (hypertension) (2) Afib (3) Pleural effusion, right Goals to Promote Your Health * To prevent worsening of your condition and complications * To maintain your health at the optimal level Directions to Meet Your Goals Take your medications as prescribed Follow your dietary instruction Follow activity as directed Keep your appointments as scheduled Take your immunizations and boosters as scheduled If your symptoms worsen call your PCP, if no PCP go to Urgent Care Center or Emergency Room Smoking is Dangerous to Your Health. Avoid second hand smoke Call the 24-hour hour crisis hotline for domestic abuse at Bertha Navarro MD Mar 30, 2017 11:09
[2017-03-30 11:26] VITALS: O2SAT 9
[2017-03-30] MEDS: METOPROLOL TARTRATE 50 MG TAB PO SCH (13:04)
[2017-03-30] MEDS: FERROUS SULFATE 325 MG (65 MG ELEMENTAL IRON) TAB PO SCH (13:04)
[2017-03-30] MEDS: LOSARTAN 25 MG TAB PO SCH (13:04)
[2017-03-30] MEDS: SODIUM CHLORIDE 0.9% FLUSH 10 ML FLUSH IV FLUSH SCH (13:04)
--- NOTE | 2017-03-30 20:09 | MP ---
cc: Mary MCKINNEY M.D. DATE OF SURGERY 03/29/17 PROCEDURE Right thoracentesis PREOPERATIVE DIAGNOSIS Right pleural effusion ANESTHESIA 1% xylocaine POSTOPERATIVE DIAGNOSIS Right pleural effusion PROCEDURAL PHYSICIAN Dr. Cathy Mckinney PROCEDURE AND FINDINGS The patient's right posterior back was prepped with Chlorhexidine solution following which sterile drapes were applied. 1% Xylocaine was then injected into the intercostal space in the posterior axillary line after which a small incision was made with a scalpel blade. Following this, a 14-gauge catheter was inserted into the pleural space. This was connected to a vacuum bottle and approximately 2200 mL of serosanguineous fluid was aspirated at which time the flow stopped. The patient tolerated the procedure well. A post tap chest x-ray will be obtained. MD TICO Rubin/ /6:34 PM /7:51 PM
[2017-04-02 14:07] LABS: AMYLASE BODY FLUID 52 U/L; AMYLASE BODY FLUID TYPE PLEURAL
== END 2017-03-30 13:52 | disposition home or self-care (01) | DRG 186 ==
LOC: PHED 10:33 → PHEDA 13:56 → PH3B 15:04
PROVIDERS: ADMIT Hospitalist; ATTEND Hospitalist
PROC: 0W993ZZ Drainage of Right Pleural Cavity, Percutaneous Approach (ICD-10-PCS; principal; 2017-03-29)
DX: J90 Pleural effusion, not elsewhere classified (principal); J18.9 Pneumonia, unspecified organism; I42.1 Obstructive hypertrophic cardiomyopathy; I48.2 Chronic atrial fibrillation; I42.2 Other hypertrophic cardiomyopathy; J98.11 Atelectasis; I10 Essential (primary) hypertension; I25.10 Atherosclerotic heart disease of native coronary artery without angina pectoris; E78.5 Hyperlipidemia, unspecified; E03.9 Hypothyroidism, unspecified; R63.4 Abnormal weight loss; R09.02 Hypoxemia; F41.9 Anxiety disorder, unspecified; Z68.22 Body mass index [BMI] 22.0-22.9, adult; Z79.01 Long term (current) use of anticoagulants; Z85.46 Personal history of malignant neoplasm of prostate; Z87.891 Personal history of nicotine dependence; Z95.5 Presence of coronary angioplasty implant and graft
CPT/HCPCS: 71045; 71046; 71260; 76604; 80048; 80053; 82150; 82945; 83615; 83880; 83986; 84157; 84484; 85025; 85610; 85730; 87015; 87070; 87102; 87116; 87205; 87206; 88112; 89051; 93005; 93306; J1644; J1940; J1956; Q9967

== ENCOUNTER 2017-05-13 09:53 | Day surgery (SDC) | payer MEDICARE, OTHER ==
[~2017-05-13] VITALS: Ht 167.6 cm; Wt 68.2 kg
[~2017-05-13 09:53] MED LIST: ASPI-516 CHEW; ATOR40TA16 PO; CITA40TA4 PO; COUM5TAB PO; FERR325T18 PO; LEVO100T5 PO; LEVO500T8 PO; LOSA25TA PO; METO50TA PO
[2017-05-13 10:16] VITALS: BP 148/84; PULSE 68; RESP 20; TEMP 97.5; O2SAT 91
[2017-05-13] MEDS ORDERED: FURO20TA PO (10:21)
[2017-05-13] MEDS ORDERED: LACTATED RINGER'S 1000 ML IV PRN (10:45)
[2017-05-13] MEDS ORDERED: SODIUM CHLORID 0.9% 500 ML IV PRN (10:45)
[2017-05-13] MEDS ORDERED: METOPROLOL TARTRATE 25 MG TAB PO PRN (10:45)
[2017-05-13] MEDS ORDERED: CHLORHEXIDINE GLUCONATE 2 % 1 PACK (2 CLOTHS) TOPICAL PRN (10:45)
[2017-05-13] MEDS ORDERED: POVIDONE IODINE 5% (ANTISEPSIS KIT) 4 APPLICATIONS EACH NARE PRN (10:45)
[2017-05-13] MEDS ORDERED: SODIUM CHLOR 0.45% 1000 ML INJ 1,000 ML IV SCH (11:00)
[2017-05-13 11:02] LABS: AUTOMATED NEUTROPHIL # 2.8 TH/MM3 (1.8-7.7); BASOPHIL % 0.6 % (0.0-2.0); EOSINOPHIL # 0.1 TH/MM3 (0-0.4); EOSINOPHIL % 2.4 % (0.0-4.0); HEMATOCRIT 40.5 % (39.0-51.0); HEMOGLOBIN 13.5 GM/DL (13.0-17.0); LYMPH % 29.5 % (9.0-44.0); LYMPHOCYTE # 1.5 TH/MM3 (1.0-4.8); MEAN CELL VOLUME 97.4 FL (80.0-100.0); MEAN CORPUSCULAR HEMOGLOBIN 32.4 PG (27.0-34.0); MEAN CORPUSCULAR HGB CONC 33.3 % (32.0-36.0); MEAN PLATELET VOLUME 7.9 FL (7.0-11.0); MONO % 11.8 % (0.0-8.0); MONOCYTE # 0.6 TH/MM3 (0-0.9); NEUT % 55.7 % (16.0-70.0); PLATELET COUNT 196 TH/MM3 (150-450); RED BLOOD COUNT 4.16 MIL/MM3 (4.50-5.90); RED CELL DISTRIBUTION WIDTH 14.6 % (11.6-17.2); WHITE BLOOD COUNT 5.1 TH/MM3 (4.0-11.0)
[2017-05-13 11:22] LABS: BICARBONATE 27.4 MEQ/L (21.0-32.0); CALCIUM 8.8 MG/DL (8.5-10.1); INTERNATIONAL NORMALIZED RATIO 1.8 RATIO; PROTHROMBIN TIME - PATIENT 18.7 SEC (9.8-11.6)
[2017-05-13] MEDS ORDERED: MORPHINE SULFATE 4 MG/ML INJ ONE (11:59)
[2017-05-13] MEDS ORDERED: SUGAMMADEX SODIUM 200 MG/2 ML VIAL IV PUSH ONE (12:31)
--- NOTE | 2017-05-13 12:42 | MP ---
cc: Mary Mckinney MD DATE OF OPERATION: 05/13/2017 PROCEDURE: Fiberoptic bronchoscopy with brushings, washings and lavage. PREOPERATIVE DIAGNOSIS: Right recurrent pleural effusion and right hilar prominence PET positive. ANESTHESIA: General with intubation. SURGEON: Cathy Mckinney MD PROCEDURE AND FINDINGS: The patient was intubated under general anesthesia, following which, the Olympus IT-180 bronchoscope was used to visualize the bronchi. The scope was advanced via the endotracheal tube into the trachea. The trachea and rafa appeared normal. The scope was then advanced into the right mainstem and right upper lobe segmental bronchi. These bronchi demonstrated no gross endobronchial lesions. Saline washings were done. Next, the right middle lobe segmental bronchi were visualized. These bronchi demonstrated no gross endobronchial lesions. There were a few mucoid secretions and these were suctioned out. Next, the right lower lobe segmental bronchi were visualized. These bronchi demonstrated no endobronchial lesions. There was mild mucosal edema and a few mucoid secretions, which were suctioned out. Saline washings were done and brushings were done from the right lower lobe for cytology and a saline lavage was done. The scope was then advanced into the left mainstem, left upper lobe segmental bronchi. These bronchi demonstrated a few mucoid secretions, but no endobronchial lesions were seen. Next, the left lower lobe segmental bronchi were visualized which demonstrated no endobronchial lesions. There were a few mucoid secretions and these were suctioned out. Saline washings were done and the procedure was then terminated. The patient tolerated the procedure well. VChristie Mckinney MD VJD/DL , 12:25 PM , 12:40 PM
[2017-05-13] MEDS ORDERED: DO NOT ADM ANY ANTICOAGULANT DRUGS PRN (12:49)
[2017-05-13 13:30] VITALS: TEMP 97.8
[2017-05-13 13:40] VITALS: BP 126/83; PULSE 68; RESP 20; O2SAT 91
[2017-05-13 13:55] VITALS: BP 126/84; PULSE 68; RESP 20; O2SAT 91
[2017-05-13 14:55] VITALS: BP 142/80; PULSE 68; RESP 20; O2SAT 91
[2017-05-13 15:48] VITALS: BP 148/84; PULSE 68; RESP 20; O2SAT 91; O2SAT 92
== END 2017-05-13 15:55 | disposition home or self-care (01) ==
LOC: HROP 09:53 → HRIP 09:53 → HROP 15:55
DX: J90 Pleural effusion, not elsewhere classified (principal); Z79.899 Other long term (current) drug therapy; Z79.01 Long term (current) use of anticoagulants
CPT/HCPCS: 31623; 80048; 85025; 85610; 85730; 87015; 87070; 87102; 87116; 87205; 87206; 88112; 88305; J2270

== ENCOUNTER 2017-05-14 09:15 | Day surgery (SDC) | payer MEDICARE, OTHER ==
[~2017-05-14 09:15] MED LIST changes: +FURO20TA PO; -LEVO500T8 PO
[2017-05-14 10:02] LABS: HEMATOCRIT 38.5 % (39.0-51.0); HEMOGLOBIN 12.6 GM/DL (13.0-17.0); MEAN CELL VOLUME 97.8 FL (80.0-100.0); MEAN CORPUSCULAR HEMOGLOBIN 32.1 PG (27.0-34.0); MEAN CORPUSCULAR HGB CONC 32.8 % (32.0-36.0); PLATELET COUNT 208 TH/MM3 (150-450); RED BLOOD COUNT 3.93 MIL/MM3 (4.50-5.90); WHITE BLOOD COUNT 9.2 TH/MM3 (4.0-11.0)
[2017-05-14 10:06] LABS: INTERNATIONAL NORMALIZED RATIO 1.5 RATIO; PROTHROMBIN TIME - PATIENT 15.1 SEC (9.8-11.6)
[2017-05-14 10:39] LABS: BICARBONATE 25.2 MEQ/L (21.0-32.0); CALCIUM 9.4 MG/DL (8.5-10.1); CREATININE 1.3 MG/DL (0.60-1.30)
--- NOTE | 2017-05-14 11:40 | RADRPT ---
EXAM DATE/TIME: 05/14/2017 11:22 [facility] COMPARISON: CHEST SINGLE AP, March 29, 2017, 19:31. INDICATIONS : Post right side thoracentesis. MEDICAL HISTORY : Hypertension. Carcinoma, prostatic. Hypercholesterolemia. abdominal aneurysm, thyroid disease, at rial fibrillation SURGICAL HISTORY : Coronary artery stent. abdominal aneurysm repair, thoracentesis ENCOUNTER: Initial ACUITY: 1 day PAIN SCORE: 0/10 LOCATION: Bilateral chest FINDINGS: A single frontal expiratory view of the chest was performed. The lungs are symmetrically aerated wit h no pneumothorax post thoracentesis. Improving right perihilar atelectatic changes. Lungs are otherw ise clear. Heart size remains borderline prominent but well compensated. CONCLUSION: 1. No pneumothorax post right-sided thoracentesis. 2. Borderline prominent but well compensated heart. 3. Improving right perihilar atelectatic changes seen previously. Will Schwab MD on May 14, 2017 at 11:35 Board Certified Radiologist. This report was verified electronically.
[2017-05-14 11:44] VITALS: BP 111/59; PULSE 61; RESP 18; TEMP 97.7; O2SAT 94
[2017-05-14 12:00] VITALS: BP 115/54; PULSE 60; RESP 18; O2SAT 95
[2017-05-14] MEDS ORDERED: LIDOCAINE HCL 1% 20 ML VIAL ONE (12:02)
--- NOTE | 2017-05-14 12:02 | RADRPT ---
EXAM DATE/TIME: 05/14/2017 10:39 [facility] COMPARISON: No previous studies available for comparison. EXTERNAL COMPARISON: [facility], PET/CT TUMOR, May 06 2017, [facility], US CHEST, April 15, 2017, CT C HEST W/CONTRAST, March 28, 2017. INDICATIONS : Right pleural effusion. MEDICAL HISTORY : Congestive heart failure. Hypercholesterolemia. Carcinoma, prostate. Thyroid disease. Afib. Cardiomyo amanda. HTN. Pleural efffusion. Herniated disc. SURGICAL HISTORY : Coronary artery stent. Abdominal aortic aneurysm repair. Hernia repair. Plates in right ankle. Radia tion therapy. Blood transfusions. ENCOUNTER: Initial ACUITY: 1 week PAIN SCORE: 0/10 LOCATION: Right chest FLUID: Total volume of 2000 cc of clear, yellowpleural fluid was removed. Fluid was sent to lab for ordered studies. TECHNIQUE: 1. Ultrasound guidance for thoracentesis. 2. Thoracentesis. The risks, benefits, and alternatives to ultrasound guided thoracentesis were explained to the patien t in lay simple terms, including the risk of bleeding and infection. Written and verbal informed con sent was obtained. Appropriate area for thoracentesis was marked under ultrasound guidance with the patient in the uprig ht position. Overlying skin was prepped and draped in the usual sterile fashion and with local anest hetic, a dermatotomy was made with an 11 blade scalpel. A 6 Polish thoracentesis catheter was placed in the pleural space and fluid was removed. Catheter was then removed and a sterile dressing applie d. There were no immediate complications. The patient tolerated the procedure well and the left the ultrasound suite in stable condition. Chest radiograph is to be obtained. CONCLUSION: Uncomplicated ultrasound guided thoracentesis. Will Schwab MD on May 14, 2017 at 11:59 Board Certified Radiologist. This report was verified electronically.
== END 2017-05-14 12:25 | disposition home or self-care (01) ==
LOC: HRAD 09:15 → HRIP 09:53 → HRAD 12:25
DX: J90 Pleural effusion, not elsewhere classified (principal); I48.91 Unspecified atrial fibrillation; I11.0 Hypertensive heart disease with heart failure; I50.9 Heart failure, unspecified; I42.9 Cardiomyopathy, unspecified; E78.00 Pure hypercholesterolemia, unspecified; E07.9 Disorder of thyroid, unspecified; Z95.5 Presence of coronary angioplasty implant and graft; Z86.79 Personal history of other diseases of the circulatory system; Z85.46 Personal history of malignant neoplasm of prostate
CPT/HCPCS: 32555; 36415; 71045; 80048; 85027; 85610; 85730; C1729